=== PATIENT | male | born 1975 | race African-American/Black ===

== ENCOUNTER 2022-06-14 19:43 | Emergency (ER) | payer MEDICAID ==
[~2022-06-14] VITALS: Ht 180.3 cm; Wt 81.6 kg
--- NOTE | 2022-06-14 19:48 | NUR ---
PT ELLE VILLASEÑOR. TAKEN TO CHAIR
[2022-06-14 19:49] VITALS: BP 139/93
--- NOTE | 2022-06-14 20:19 | NUR ---
Dr. Antoine examining patient.
--- NOTE | 2022-06-14 20:26 | NUR ---
Blood for labwork drawn from right arm by quality control manager. Patient tolerated well.
[2022-06-14 20:42] LABS: BASOPHILS % (AUTO) 0.8 % (0.0-2.0); EOSINOPHILS # (AUTO) 0.2 K/uL (0-0.4); EOSINOPHILS % (AUTO) 3.5 % (0.0-4.0); HEMATOCRIT 40.6 % (36-52); HEMOGLOBIN 13.7 g/dL (12.0-18.0); LYMPHOCYTES # (AUTO) 2.3 K/uL (2.0-11.5); LYMPHOCYTES % (AUTO) 50.9 % (20.5-51.1); MEAN CORPUSCULAR HEMOGLOBIN 31 pg (27-31); MEAN CORPUSCULAR HGB CONC 34 g/dL (33-37); MEAN CORPUSCULAR VOLUME 92.9 fL (80-94); MONOCYTES # (AUTO) 0.3 K/uL (0.8-1.0); MONOCYTES % (AUTO) 6.9 % (1.7-9.3); NEUTROPHILS # (AUTO) 1.7 K/uL (1.8-7.7); NEUTROPHILS % (AUTO) 37.9 % (42.2-75.2); PLATELET COUNT (AUTO) 239 K/uL (140-450); RED BLOOD CELL COUNT(AUTO) 4.37 MIL/uL (4.20-6.10); RED CELL DISTRIBUTION WIDTH 14.7 % (11.6-13.7); WHITE BLOOD COUNT (AUTO) 4.5 K/uL (4.8-10.8)
--- NOTE | 2022-06-14 20:42 | NUR ---
PT MOVED TO ER BED 8
[2022-06-14 20:57] LABS: ACETAMINOPHEN < 0.5 ug/ml (10-30); ALBUMIN 3.7 g/dL (3.4-5.0); ANION GAP 10.2 (8-16); ASPARTATE AMINOTRANSFERASE 20 U/L (15-37); CARBON DIOXIDE 32.9 mmol/L (21-32); CHLORIDE 104 mmol/L (98-107); CREATININE 0.8 mg/dL (0.6-1.3); GFR ARICAN-AMERICAN 134 mL/min (>90); GLUCOSE 92 mg/dL (74-106); POTASSIUM 4.1 mmol/L (3.5-5.1); SALICYLATE 2.8 mg/dL (2.8-20.0); SODIUM SERUM 143 mmol/L (136-145); TOTAL BILIRUBIN 0.1 mg/dL (0.0-1.0); UREA NITROGEN, BLOOD 15 mg/dL (7-18)
--- NOTE | 2022-06-14 21:24 | NUR ---
COVID SWAB AND NOVAL SWAB COLLECTED AND SENT TO LAB
--- NOTE | 2022-06-14 22:31 | NUR ---
DR. ORDAZ SPEAKING WITH PATIENT VIA REMOTE COMMUNICATION
--- NOTE | 2022-06-14 22:41 | NUR ---
RETURN CALL FROM DR. ORDAZ, RECOMMENDS PLACING PT ON A HOLD
--- NOTE | 2022-06-14 22:46 | NUR ---
DR ORDAZ SPOKE TO PT VIA TELEPSYCH. PT IS NOW ON A 5740 HOLD
--- NOTE | 2022-06-14 23:38 | NUR ---
ALL ITEMS HAVE REMOVED FROM ROOM FOR PT SAFTEY. PT IN GOWN. Q15 SI CHECKS PT IN VIEW FROM NURSING STATION
--- NOTE | 2022-06-14 23:42 | NUR ---
46YR OLD MALE C/O SI . PT BROUGHT FROM THE STREETS . PT STATES " I WANT TO KILL MYSELF" . [address] ORDAZ. SI Q15 CHECKS PT IN GOWN. ALL ITEMS REMOVED FROM ROOM. ALL PERSONAL BELONGINGS BAGGED AND TAGGED NKDA DEPRESSION BIPOLAR
[2022-06-15 00:54] LABS: BARBITURATE, URINE NEGATIVE ng/ml (NEG <=200); BENZODIAZEPINE, URINE NEGATIVE ng/mL (NEG <=200); CANNABINOID, URINE NEGATIVE ng/mL (NEG <=50); COCAINE, URINE NEGATIVE ng/mL (NEG <=300)
[2022-06-15 00:55] LABS: OPIATE, URINE POSITIVE ng/mL (NEG <=2000); PHENCYCLIDINE SCREEN,URINE NEGATIVE ng/mL (NEG <=25)
--- NOTE | 2022-06-15 02:18 | NUR ---
PT RESTING IN BED RESP EVEN AND UNLABORED. FOOD PROVIDED TO PT. BED AT LOWEST POSITION SIDE RAILS UP X2
--- NOTE | 2022-06-15 07:20 | NUR ---
Received report from VIANNEY Falk. Assumed care at this time.
--- NOTE | 2022-06-15 08:44 | NUR ---
Packet faxed to: [facility]
--- NOTE | 2022-06-15 08:46 | NUR ---
PT MOVED TO ER BED 5
--- NOTE | 2022-06-15 13:22 | NUR ---
Patient has HPE. Packet has been faxed to [facility]
--- NOTE | 2022-06-15 13:26 | NUR ---
Tere Castillo from [facility]. Pt has been accepted at [facility] Unit 1 Room 1002 Bed A. Accepted by Dr. Velásquez. Address: [address] [place] [address] Number for report: [phone]
--- NOTE | 2022-06-15 15:10 | NUR ---
[facility] AT BEDSIDE
--- NOTE | 2022-06-15 15:15 | NUR ---
ATTEMPTED TO GIVE REPORT TO RECEIVING FACILITY, DIRECTED TO CALL BACK IN 20 MINUTES.
[2022-06-15 15:20] VITALS: BP 133/85
--- NOTE | 2022-06-15 15:20 | NUR ---
Patient to be transferred to [facility]. Is being transferred due to Higher level of Care. Receiving facility has accepting physician and available space. ER physician has signed transfer form. Patient or responsible alliance party has agreed to transfer and signed form. Patient belongings inventoried and will be sent with patient. Copy of nursing notes, lab reports, EKG, Physicians Orders and X-rays to be sent with patient. Report called to Ilsa Stein, at receiving facility. [facility] ambulance service has been called for transfer. ETA is 90min.
--- NOTE | 2022-06-15 15:41 | NUR ---
Gave phone report to PRASHANTH Stein, at [facility].
[2022-06-15] MEDS ORDERED: OLANZapine 5 MG ODT PO SCH (21:00)
== END 2022-06-15 15:20 ==
LOC: MED 19:43
DX: R45.851 Suicidal ideations (principal); Z20.822 Contact with and (suspected) exposure to COVID-19; R44.3 Hallucinations, unspecified; F32.9 Major depressive disorder, single episode, unspecified; F20.9 Schizophrenia, unspecified; F17.210 Nicotine dependence, cigarettes, uncomplicated; F12.90 Cannabis use, unspecified, uncomplicated; F15.90 Other stimulant use, unspecified, uncomplicated; Z79.899 Other long term (current) drug therapy
CPT/HCPCS: 36415; 80053; 80305; 85025; 87426; 87635; 99285; C9803; G0480; G0482